=== PATIENT | female | born 1975 | race African-American/Black ===

== ENCOUNTER 2021-10-01 22:16 | Emergency (ER) | payer BC ==
[2021-10-01 22:34] VITALS: BP 128/92
--- NOTE | 2021-10-01 23:43 | Cat Scan Report ---
CT HEAD WITHOUT CONTRAST INDICATION / CLINICAL INFORMATION: fall. TECHNIQUE: All CT scans at this location are performed using CT dose reduction for ALARA by means of automated e xposure control. COMPARISON: None available. FINDINGS: There is no acute intracranial hemorrhage. Ventricles are normal in size without midline shift or mas s effect. No extra-axial fluid collection is seen. Basal ganglia calcifications identified. There is ethmoid and maxillary sinus disease. Visualized portions of the sella appear normal. Orbits appear no rmal.. No foreign body or significant soft tissue injury is definitely seen ADDITIONAL FINDINGS: None. IMPRESSION: 1. No acute intracranial abnormality. Signer Name: Maurice Montelongo MD Signed: 10/01/2021 11:39 PM Workstation Name: [id number]
[2021-10-02] MEDS ORDERED: LET TOPICAL (LIDOCAINE/EPINEPHRINE/TETRACAINE) 3 ML TP STA (01:50)
[2021-10-02] MEDS ORDERED: TETANUS,DIPH,PERTUSS(ACELL) VACCINE 0.5 ML SYRINGE IM ONE (01:50)
[2021-10-02] MEDS ORDERED: LIDOCAINE (2%) 20 MG/1 ML VIAL 20 ML MDV INFILTRATI STA (01:50)
--- NOTE | 2021-10-02 03:46 | Emergency Department Report ---
ED General Adult HPI - General Chief complaint: Syncope Stated complaint: FALL/HEAD INJURY Time Seen by Provider: 10/02/21 01:09 Source: patient Mode of arrival: Ambulatory Limitations: No Limitations - History of Present Illness Severity scale (0 -10): 3 - Related Data Allergies Allergy/AdvReac Type Severity Reaction Status Date / Time No Known Allergies Allergy Unverified 10/01/21 22:25 ED Review of Systems ROS: Stated complaint: FALL/HEAD INJURY Other details as noted in HPI ED Past Medical Hx - Past Medical History Previous Medical History?: No - Surgical History Past Surgical History?: Yes Additional Surgical History: breast ED Physical Exam - General Limitations: No Limitations ED Course Vital Signs 10/01/21 10/02/21 22:28 03:42 Temperature 98.7 F Pulse Rate 86 102 H Respiratory 15 18 Rate Blood Pressure 128/92 [Right] O2 Sat by Pulse 99 99 Oximetry Critical care attestation.: If time is entered above; I have spent that time in minutes in the direct care of this critically ill patient, excluding procedure time. ED Disposition Disposition: [facility] Condition: Stable Instructions: Laceration Care, Adult, [id number] Additional Instructions: Absorbable sutures used for wound closure. No need to return for removal Referrals: [facility] [Provider Group] - 3-5 Days
--- NOTE | 2021-10-02 09:09 | Electrocardiograph Report ---
[facility] Test Date: 2021-10-01 Test Time: 22:21:25 Pat Name: DIANA KOWALSKI Department: Room: Gender: F Chemical Process Operator: ASYA : 1975 Requested By: TRACY GARCIA Order Number: [id number] Reading MD: Kirk Foss Measurements Intervals Orient Rate: 75 P: 73 VT: 199 QRS: 69 QRSD: 93 T: 37 QT: 391 QTc: 438 Interpretive Statements Sinus rhythm Probable left atrial enlargement No previous ECG available for comparison Electronically Signed On 10-02-2021 9:09:20 EDT by Kirk Foss
== END 2021-10-02 03:48 | disposition designated cancer center or children's hospital (05) ==
LOC: ED 22:16
DX: S09.90XA Unspecified injury of head, initial encounter (principal); X58.XXXA Exposure to other specified factors, initial encounter; Y93.89 Activity, other specified; Y92.89 Other specified places as the place of occurrence of the external cause; Y99.8 Other external cause status
CPT/HCPCS: 70450; 90471; 90715; 93005; 99285; J3490; 96372; 99283